=== PATIENT | male | born 1960 | race Caucasian/White ===

== ENCOUNTER 2025-01-04 09:21 | Inpatient (IN) | payer MEDICAID ==
[2025-01-04] VITALS (12 sets, daily range): BP systolic 108–149; BP diastolic 74–92; TEMP 98.1–99.3; O2SAT 97–100
[~2025-01-04] VITALS: Ht 165.1 cm; Wt 90.7 kg
[2025-01-04] MEDS: CEFEPIME 1 GM in IV D5W 50 ML IV ONE (09:45)
[2025-01-04] MEDS: PANTOPRAZOLE 80 MG in IV NS 0.9% 100 ML IV ONE (09:45)
[2025-01-04 10:03] LABS: ABG BASE EXCESS -11.5 mmol/L (-2.0-3.0); ABG OXYGEN SATURATION 94.8 % (94.0-98.0); ABG PCO2 19.2 mmHg (35.0-48.0); ABG PH 7.413 (7.350-7.450); ABG PO2 82.3 mmHg (83.0-108.0); ABG TOTAL HEMOGLOBIN 6.2 G/dL (13.5-17.5); FLOW, BLOOD GAS 0.00 L/min (0.00-30.00); FRACTIONATED INSPIRED OXYGEN 21.0 %; SITE, ABG LEFT RADIAL
[2025-01-04 10:13] LABS: PLATELET COUNT (AUTO) 380 K/uL (150-450); RED BLOOD CELL COUNT(AUTO) 2.60 MIL/uL (4.5-6.0); RED CELL DISTRIBUTION WIDTH 19.8 % (11.5-15.0); WHITE BLOOD COUNT (AUTO) 18.8 K/uL (4.3-11.0)
[2025-01-04] MEDS: PANTOPRAZOLE 80 MG in IV NS 0.9% 500 ML IV ONE (10:15)
[2025-01-04 10:29] LABS: INR 1.04 (0.91-1.10)
[2025-01-04 10:30] LABS: ACETONE, SERUM NEGATIVE (NEGATIVE)
[2025-01-04 10:35] LABS: ASPARTATE AMINOTRANSFERASE 14 U/L (15-37); CALCIUM, SERUM 7.8 mg/dL (8.5-10.1); CREATININE 1.9 mg/dL (0.6-1.3); LACTIC ACID 8.2 mmol/L (0.4-2.0); TOTAL PROTEIN, SERUM 6.2 g/dL (6.4-8.2); UREA NITROGEN, BLOOD 68 mg/dL (7-18)
[2025-01-04 10:39] LABS: NT-PRO BNP 114 pg/mL (0-125)
[2025-01-04 10:40] LABS: SODIUM SERUM 131 mmol/L (136-145)
[2025-01-04 10:49] LABS: APPEARANCE,URINE CLEAR (CLEAR); BLOOD, URINE Negative Ery/uL (NEGATIVE); LEUKOCYTE ESTERASE ,URINE Negative (NEGATIVE); NITRITE, URINE NEGATIVE (NEGATIVE); UGLUCOSE Negative (NEGATIVE)
[2025-01-04 11:04] LABS: CALCIUM, SERUM 7.4 mg/dL (8.5-10.1); CREATININE 1.9 mg/dL (0.6-1.3); SODIUM SERUM 131.0 mmol/L (136-145); UREA NITROGEN, BLOOD 68.0 mg/dL (7-18)
[2025-01-04] MEDS ORDERED: CALCIUM CHLORIDE 1,000 MG/10 ML DISP.SYRIN ONE (11:05)
[2025-01-04 11:12] LABS: ADD URINE CULTURE NO; HYALINE CASTS, URINE Rare /LPF (None Seen); SQUAMOUS EPITHELIAL CELL,UR Few /HPF (None Seen)
[2025-01-04 11:14] LABS: LACTIC ACID 7.7 mmol/L (0.4-2.0)
[2025-01-04] MEDS: Calcium Gluconate 1GM/10ML 4.65 MEQ in IV NS 0.9% 100 ML IV ONE (11:15)
[2025-01-04] MEDS ORDERED: LACTULOSE 10 G/15 ML UDC (PYXIS) PR ONE (11:30)
[2025-01-04 11:35] LABS: LYMPHOCYTES % (MANUAL) 3 % (16-48); MONOCYTES % (MANUAL) 2 % (0-11.0); NEUTROPHILS % (MANUAL) 95 (42-76); PLATELET ESTIMATE ADEQUATE
[2025-01-04] MEDS: SODIUM BICARBONATE SYR 50 MEQ/50 ML DISP.SYRIN IV ONE (11:48)
[2025-01-04 11:53] LABS: CALCIUM, SERUM 7.5 mg/dL (8.5-10.1); CREATININE 2.0 mg/dL (0.6-1.3); PHOSPHORUS 1.5 mg/dL (2.5-4.9); SODIUM SERUM 133.0 mmol/L (136-145); UREA NITROGEN, BLOOD 70.0 mg/dL (7-18)
[2025-01-04] MEDS: INSULIN REGULAR, HUMAN 100 UNITS in IV NS 0.9% 100 ML IV PRN (11:59)
[2025-01-04] MEDS ORDERED: ONDANSETRON HCL/PF 4 MG/2 ML VIAL ONE (12:40)
[2025-01-04] MEDS ORDERED: NUT.237L70 PO (12:41)
[2025-01-04] MEDS ORDERED: GLUC1KIT IM (12:41)
[2025-01-04] MEDS ORDERED: IPRA4AER IH (12:41)
[2025-01-04] MEDS ORDERED: FERR325T24 PO (12:41)
[2025-01-04] MEDS ORDERED: DOCU100C36 PO (12:41)
[2025-01-04] MEDS ORDERED: MIRT-90 PO (12:41)
[2025-01-04] MEDS ORDERED: ASPI-1169 PO (12:41)
[2025-01-04] MEDS ORDERED: LACT10SO3 PO (12:41)
[2025-01-04] MEDS ORDERED: NIFE-34 PO (12:41)
[2025-01-04] MEDS ORDERED: MAGN400T52 PO (12:41)
[2025-01-04] MEDS ORDERED: PANT40TA49 PO (12:41)
[2025-01-04] MEDS ORDERED: LOSA50TA39 PO (12:41)
[2025-01-04] MEDS ORDERED: INSU100I30 SQ (12:41)
[2025-01-04] MEDS ORDERED: ATOR20TA PO (12:41)
[2025-01-04] MEDS ORDERED: INSU100V9 SQ (12:41)
[2025-01-04] MEDS ORDERED: LINA5TAB PO (12:41)
[2025-01-04] MEDS ORDERED: CALC-261 PO (12:41)
[2025-01-04] MEDS ORDERED: METF-442 PO (12:41)
[2025-01-04] MEDS ORDERED: METO50TA16 PO (12:41)
[2025-01-04] MEDS ORDERED: OLAN10TA6 PO (12:41)
[2025-01-04] MEDS: ONDANSETRON HCL/PF 4 MG/2 ML VIAL IV STA (12:56)
[2025-01-04] MEDS ORDERED: MAG HYDROX/AL HYDROX/SIMETH 30 ML UDC PO PRN (13:30)
[2025-01-04] MEDS ORDERED: ACETAMINOPHEN 325 MG TABLET PO PRN (13:30)
[2025-01-04] MEDS ORDERED: INSULIN REGULAR, HUMAN 100 UNIT in IV NS 0.9% 99 ML IV PRN (13:30)
[2025-01-04] MEDS ORDERED: Z GUARD REMEDY 4 OZ OINT TP PRN (13:30)
[2025-01-04] MEDS ORDERED: PANTOPRAZOLE 40 MG VIAL IV SCH (13:30)
[2025-01-04] MEDS ORDERED: DOSING PER PHARMACY-VANCOMYCIN IV XX PRN (13:30)
[2025-01-04] MEDS ORDERED: MAGNESIUM HYDROXIDE 30 ML UDC PO PRN (13:30)
[2025-01-04] MEDS ORDERED: DOSING PER PHARMACY-CEFEPIME IVPB XX PRN (13:30)
[2025-01-04 14:25] LABS: CALCIUM, SERUM 8.7 mg/dL (8.5-10.1); CREATININE 1.8 mg/dL (0.6-1.3); PHOSPHORUS 1.7 mg/dL (2.5-4.9); SODIUM SERUM 141.0 mmol/L (136-145); UREA NITROGEN, BLOOD 72.0 mg/dL (7-18)
[2025-01-04] MEDS: VANCOMYCIN 1 GM in IV D5W 250ml IV SCH (14:38)
[2025-01-04] MEDS: BLOOD SUGAR DIAGNOSTIC 1 EACH STRIP IN SCH (15:00)
[2025-01-04] MEDS ORDERED: IV NS 0.9% 1,000 ML IV SCH (15:00)
[2025-01-04] MEDS: Sodium Phosphate 15 MMOL in IV NS 0.9% 245 ML IV SCH (16:40)
[2025-01-04] MEDS: IV D5/0.45 NACL 1,000 ML IV PRN (17:10)
[2025-01-04] MEDS: ONDANSETRON HCL/PF 4 MG/2 ML VIAL IVP PRN (17:16)
[2025-01-04 17:19] LABS: CALCIUM, SERUM 8.9 mg/dL (8.5-10.1); CREATININE 1.9 mg/dL (0.6-1.3); PHOSPHORUS 1.6 mg/dL (2.5-4.9); SODIUM SERUM 140.0 mmol/L (136-145); UREA NITROGEN, BLOOD 71.0 mg/dL (7-18)
[2025-01-04 19:51] LABS: CALCIUM, SERUM 7.8 mg/dL (8.5-10.1); CREATININE 2.0 mg/dL (0.6-1.3); SODIUM SERUM 137.0 mmol/L (136-145); UREA NITROGEN, BLOOD 63.0 mg/dL (7-18)
[2025-01-04] MEDS: PANTOPRAZOLE 80 MG in IV NS 0.9% 500 ML IV SCH (20:05)
[2025-01-04] MEDS: IV NS 0.9% 250 ML IV PRN (20:05)
[2025-01-04] MEDS: METOCLOPRAMIDE HCL 10 MG/2 ML VIAL IV SCH (21:00)
[2025-01-05] VITALS (34 sets, daily range): BP systolic 119–153; BP diastolic 71–95; TEMP 98.4–99.1; O2SAT 97–100
[2025-01-05 00:58] LABS: CALCIUM, SERUM 8.2 mg/dL (8.5-10.1); CREATININE 1.5 mg/dL (0.6-1.3); SODIUM SERUM 141.0 mmol/L (136-145); UREA NITROGEN, BLOOD 54.0 mg/dL (7-18)
[2025-01-05] MEDS: BLOOD SUGAR DIAGNOSTIC 1 EACH STRIP IN SCH ×2 (02:17→12:30)
[2025-01-05 02:18] LABS: CALCIUM, SERUM 8.0 mg/dL (8.5-10.1); CREATININE 1.5 mg/dL (0.6-1.3); SODIUM SERUM 141.0 mmol/L (136-145); UREA NITROGEN, BLOOD 51.0 mg/dL (7-18)
[2025-01-05 04:14] LABS: PLATELET COUNT (AUTO) 305 K/uL (150-450); RED BLOOD CELL COUNT(AUTO) 3.08 MIL/uL (4.5-6.0); RED CELL DISTRIBUTION WIDTH 22.5 % (11.5-15.0); WHITE BLOOD COUNT (AUTO) 23.1 K/uL (4.3-11.0)
[2025-01-05 04:20] LABS: INR 1.04 (0.91-1.10)
[2025-01-05 04:22] LABS: ASPARTATE AMINOTRANSFERASE 51.0 U/L (15-37); CALCIUM, SERUM 7.5 mg/dL (8.5-10.1); CREATININE 1.5 mg/dL (0.6-1.3); PHOSPHORUS 2.6 mg/dL (2.5-4.9); SODIUM SERUM 140.0 mmol/L (136-145); TOTAL PROTEIN, SERUM 5.0 g/dL (6.4-8.2); UREA NITROGEN, BLOOD 50.0 mg/dL (7-18)
[2025-01-05 04:36] LABS: CREATINE KINASE, TOTAL 969.0 U/L (39-308); LDL 26.0 mg/dL (0-99)
[2025-01-05] MEDS ORDERED: DEXTROSE 50%-WATER 50 ML DISP.SYRIN IV PRN ×2 (07:00→13:30)
[2025-01-05] MEDS ORDERED: METOCLOPRAMIDE HCL 10 MG/2 ML VIAL IV PRN (09:00)
[2025-01-05] MEDS: CEFEPIME 2 GM in IV D5W 100 ML IV SCH (10:31)
[2025-01-05] MEDS: POTASSIUM CL. PREMIX PERIPHER. 50 ML IV SCH (10:31)
[2025-01-05 11:11] LABS: ABG BASE EXCESS -5.7 mmol/L (-2.0-3.0); ABG OXYGEN SATURATION 97.1 % (94.0-98.0); ABG PCO2 26.3 mmHg (35.0-48.0); ABG PH 7.441 (7.350-7.450); ABG PO2 100.9 mmHg (83.0-108.0); ABG TOTAL HEMOGLOBIN 8.5 G/dL (13.5-17.5); FLOW, BLOOD GAS 3.00 L/min (0.00-30.00); FRACTIONATED INSPIRED OXYGEN 33.0 %; SITE, ABG LEFT BRACHIAL
[2025-01-05] MEDS: IV D5/ 0.9% NACL 1,000 ML IV ONE (12:46)
[2025-01-05] MEDS: INSULIN REGULAR, HUMAN 100 UNIT/ML 3 ML VIAL SQ PRN (12:49)
[2025-01-05] MEDS ORDERED: INSULIN REGULAR, HUMAN 100 UNIT/ML 3 ML VIAL SQ PRN (13:30)
[2025-01-05 14:38] LABS: CALCIUM, SERUM 6.9 mg/dL (8.5-10.1); CREATININE 1.3 mg/dL (0.6-1.3); SODIUM SERUM 139.0 mmol/L (136-145); UREA NITROGEN, BLOOD 31.0 mg/dL (7-18)
[2025-01-05] MEDS: VANCOMYCIN HCL 1.25 GM in IV D5W 250 ML IV SCH (15:08)
[2025-01-05] MEDS: BLOOD SUGAR DIAGNOSTIC 1 EACH STRIP VI SCH (17:30)
[2025-01-05] MEDS: *INSULIN REGULAR(HUMULIN R)HUM 100 UNIT/ML VIAL SQ PRN (18:07)
[2025-01-06] VITALS (36 sets, daily range): BP systolic 108–165; BP diastolic 63–130; TEMP 98.2–99.1; O2SAT 94–100
[2025-01-06] MEDS ORDERED: IV D5/ 0.9% NACL 1,000 ML IV PRN
[2025-01-06] MEDS: IV D5/ 0.9% NACL 1,000 ML IV SCH (02:05)
[2025-01-06 05:03] LABS: PLATELET COUNT (AUTO) 254 K/uL (150-450); RED BLOOD CELL COUNT(AUTO) 2.75 MIL/uL (4.5-6.0); RED CELL DISTRIBUTION WIDTH 22.4 % (11.5-15.0); WHITE BLOOD COUNT (AUTO) 20.1 K/uL (4.3-11.0)
[2025-01-06 05:04] LABS: ASPARTATE AMINOTRANSFERASE 35.0 U/L (15-37); CALCIUM, SERUM 6.8 mg/dL (8.5-10.1); CREATININE 1.1 mg/dL (0.6-1.3); PHOSPHORUS 2.1 mg/dL (2.5-4.9); SODIUM SERUM 140.0 mmol/L (136-145); TOTAL PROTEIN, SERUM 4.5 g/dL (6.4-8.2); UREA NITROGEN, BLOOD 21.0 mg/dL (7-18)
[2025-01-06 05:10] LABS: PTH, INTACT 48 pg/mL (15-65)
[2025-01-06 05:39] LABS: LYMPHOCYTES % (MANUAL) 2 % (16-48); MONOCYTES % (MANUAL) 11 % (0-11.0); NEUTROPHILS % (MANUAL) 87 (42-76); PLATELET ESTIMATE ADEQUATE
[2025-01-06] MEDS: PANTOPRAZOLE 40 MG VIAL IV SCH (11:05)
[2025-01-06] MEDS: VANCOMYCIN 1 GM in IV D5W 250 ML IV SCH (14:18)
[2025-01-06] MEDS: Sodium Phosphate 15 MMOL in IV NS 0.9% 245 ML IV SCH (16:39)
[2025-01-06] MEDS: MEROPENEM 1 G in IV NS 0.9% 100 ML IV SCH (21:46)
[2025-01-07] VITALS (16 sets, daily range): BP systolic 124–154; BP diastolic 66–95; TEMP 98.1–99.7; O2SAT 95–100
[2025-01-07 05:01] LABS: PLATELET COUNT (AUTO) 229 K/uL (150-450); RED BLOOD CELL COUNT(AUTO) 3.27 MIL/uL (4.5-6.0); RED CELL DISTRIBUTION WIDTH 22.4 % (11.5-15.0); WHITE BLOOD COUNT (AUTO) 14.1 K/uL (4.3-11.0)
[2025-01-07 05:17] LABS: CALCIUM, SERUM 7.1 mg/dL (8.5-10.1); CREATININE 0.7 mg/dL (0.6-1.3); SODIUM SERUM 141.0 mmol/L (136-145); UREA NITROGEN, BLOOD 8.0 mg/dL (7-18)
[2025-01-07] MEDS: MEROPENEM 1 G in IV NS 0.9% 100 ML IV SCH (13:46)
[2025-01-08 04:28] VITALS: BP 133/84; TEMP 99; O2SAT 97
[2025-01-08 06:42] LABS: PLATELET COUNT (AUTO) 271 K/uL (150-450); RED BLOOD CELL COUNT(AUTO) 3.52 MIL/uL (4.5-6.0); RED CELL DISTRIBUTION WIDTH 22.2 % (11.5-15.0); WHITE BLOOD COUNT (AUTO) 9.6 K/uL (4.3-11.0)
[2025-01-08 07:10] LABS: CALCIUM, SERUM 7.4 mg/dL (8.5-10.1); CREATININE 0.9 mg/dL (0.6-1.3); SODIUM SERUM 140.0 mmol/L (136-145); UREA NITROGEN, BLOOD 8.0 mg/dL (7-18)
[2025-01-08 08:00] VITALS: BP 136/83; TEMP 98.1; O2SAT 97
[2025-01-08 12:00] VITALS: BP 136/83; TEMP 98.1; O2SAT 97
[2025-01-08 16:00] VITALS: BP 137/90; TEMP 97.7; O2SAT 98
[2025-01-08 20:00] VITALS: BP 141/85; TEMP 98.4; O2SAT 98
[2025-01-09] VITALS (7 sets, daily range): BP systolic 134–140; BP diastolic 88–98; TEMP 98.1–98.3; O2SAT 94–99
[2025-01-09 07:10] LABS: PLATELET COUNT (AUTO) 270 K/uL (150-450); RED BLOOD CELL COUNT(AUTO) 3.64 MIL/uL (4.5-6.0); RED CELL DISTRIBUTION WIDTH 22.9 % (11.5-15.0); WHITE BLOOD COUNT (AUTO) 8.3 K/uL (4.3-11.0)
[2025-01-09 07:19] LABS: CALCIUM, SERUM 7.7 mg/dL (8.5-10.1); CREATININE 1.0 mg/dL (0.6-1.3); SODIUM SERUM 138.0 mmol/L (136-145); UREA NITROGEN, BLOOD 8.0 mg/dL (7-18)
[2025-01-10 04:00] VITALS: BP 135/95; TEMP 98; O2SAT 98
[2025-01-10 07:10] LABS: CALCIUM, SERUM 8.5 mg/dL (8.5-10.1); CREATININE 1.0 mg/dL (0.6-1.3); SODIUM SERUM 136.0 mmol/L (136-145); UREA NITROGEN, BLOOD 10.0 mg/dL (7-18)
[2025-01-10 08:00] VITALS: BP 129/95; TEMP 98.1; O2SAT 94
[2025-01-10 12:00] VITALS: BP 129/95; TEMP 98.1; O2SAT 94
== END 2025-01-10 14:50 | DRG 720 ==
LOC: ER 09:31 → ICU 11:06 → MEDSG1 01-07 14:03
PROVIDERS: ADMIT Nurse Practitioner Acute Care; ATTEND Nurse Practitioner Acute Care
PROC: 02HV33Z Insertion of Infusion Device into Superior Vena Cava, Percutaneous Approach (ICD-10-PCS; principal; 2025-01-04)
PROC: 30233N1 Transfusion of Nonautologous Red Blood Cells into Peripheral Vein, Percutaneous Approach (ICD-10-PCS; 2025-01-04)
PROC: 0DB68ZX Excision of Stomach, Via Natural or Artificial Opening Endoscopic, Diagnostic (ICD-10-PCS; 2025-01-05)
PROC: 0DB58ZX Excision of Esophagus, Via Natural or Artificial Opening Endoscopic, Diagnostic (ICD-10-PCS; 2025-01-05)
DX: A41.9 Sepsis, unspecified organism (principal); N17.0 Acute kidney failure with tubular necrosis; R65.21 Severe sepsis with septic shock; J96.01 Acute respiratory failure with hypoxia; K22.11 Ulcer of esophagus with bleeding; J69.0 Pneumonitis due to inhalation of food and vomit; E11.10 Type 2 diabetes mellitus with ketoacidosis without coma; I50.33 Acute on chronic diastolic (congestive) heart failure; K25.4 Chronic or unspecified gastric ulcer with hemorrhage; K21.01 Gastro-esophageal reflux disease with esophagitis, with bleeding; K44.9 Diaphragmatic hernia without obstruction or gangrene; I13.0 Hypertensive heart and chronic kidney disease with heart failure and stage 1 through stage 4 chronic kidney disease, or unspecified chronic kidney disease; N18.9 Chronic kidney disease, unspecified; E78.5 Hyperlipidemia, unspecified; E11.22 Type 2 diabetes mellitus with diabetic chronic kidney disease; E66.01 Morbid (severe) obesity due to excess calories; K29.70 Gastritis, unspecified, without bleeding; Z79.4 Long term (current) use of insulin; Z79.51 Long term (current) use of inhaled steroids; Z79.84 Long term (current) use of oral hypoglycemic drugs; Z79.82 Long term (current) use of aspirin; Z79.899 Other long term (current) drug therapy; I70.0 Atherosclerosis of aorta; E87.5 Hyperkalemia; E86.0 Dehydration; F25.0 Schizoaffective disorder, bipolar type; F09 Unspecified mental disorder due to known physiological condition; Y95 Nosocomial condition; E87.1 Hypo-osmolality and hyponatremia; D64.9 Anemia, unspecified; E87.6 Hypokalemia; R79.81 Abnormal blood-gas level; J98.11 Atelectasis; M89.8X9 Other specified disorders of bone, unspecified site; E86.9 Volume depletion, unspecified; B96.81 Helicobacter pylori [H. pylori] as the cause of diseases classified elsewhere
CPT/HCPCS: 36415; 36600; 71045-TC; 76770-TC; 80048-TC; 80053-TC; 80061-TC; 80076-TC; 80202-TC; 81001; 82010-TC; 82550-TC; 82553; 82803-TC; 82962-TC; 83605-TC; 83690-TC; 83735-TC; 83880; 83970; 84100-TC; 84155; 84165; 84443-TC; 84484-TC; 85025-TC; 85027-TC; 85610-TC; 85730-TC; 86850-TC; 87040-TC; 87081-TC; 88305-TC; 88312-TC; 88313-TC; 88342; 92526; 92611; 93307-TC; A4223; A9563; C1752; G0378; J0612; J0692; J1815; J2185; J2405; J2470; J2704; J2765; J3373; J3480; J3490; J7030; J7040; J7042; J7050; J7060; P9016